=== PATIENT | female | born 1970 | race Caucasian/White ===

== ENCOUNTER → 2016-11-11 | Outpatient (CLI) | payer MEDICAID ==
--- OUTSIDE RECORDS SUMMARY | 2016-11-11 09:16 | XMS REPORT ---
Author MORIS Elias [facility] eClinicalWorks Address Unknown Phone Unavailable Care Team Providers Care [employer] Name Role Phone MORIS YEE CP Unavailable Allergies, Adverse Reactions, Alerts Substance Reaction Event Type Wellbutrin black outs Drug Allergy Remeron nightmares Drug Allergy NSaids Causes stomach bleeding Non Drug Allergy Problems Problem Type Condition Code Onset Dates Condition Status Assessment Pre-op evaluation Z01.818 Active Problem Back pain, unspecified back location, unspecified back pain laterality , unspecified chronicity M54.9 Active Problem History of herpes genitalis Z86.19 Active Assessment Hypokalemia E87.6 Active Problem Fibromyalgia M79.7 Active Problem Depression, unspecified depression type F32.9 Active Problem Encounter to establish care Z76.89 Active Problem 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 Problem Chronic obstructive pulmonary disease, unspecified COPD type J44.9 Active Problem SVT (supraventricular tachycardia) I47.1 Active Problem Migraine without status migrainosus, not intractable, unspecified migraine type G43.909 Active Medications Medication Code System Code Instructions Start Date End Date Status Dosage Lyrica [facility] [address]-48 100 MG Orally 2 times a day 1 capsule Tramadol HCl [facility] [address]-47 50 mg Orally 2 times a day 1 tablet as needed Imitrex [facility] [address]-41 100 MG Orally 1 tablet at the onset of of Migraine, and a 2nd pill 1-2 hours after if needed Tizanidine HCl [facility] [address]-08 4 MG Orally every 8 hrs April 14, 2016 1 tablet as needed Spiriva HandiHaler [facility] [address]-27 18 MCG Inhalation Once a day 1 Capsule ProAir HFA [facility] [address]-07 108 (90 Base) MCG/ACT Inhalation every 4 hrs 2 puffs as needed Topamax [facility] [address]-98 50 mg Orally Twice a day 1 tablet Diflucan [facility] [address]-89 100 MG Orally then 1 tablet once daily Apr 30, 2016 May 14, 2016 2 tablets on day one, Potassium [facility] [address]-51 10 Orally Once a day May 04, 2016 1 tablet Atenolol [facility] [address]-72 25 MG Orally Once a day 1 tablet Procedures Procedure Coding System Code Date Office Visit, Est Pt., Level 3 CPT-4 40106 May 04, 2016 Vital Signs Date/Time: May 04, 2016 Cardiac Monitoring Heart Rate 84 bpm Weight 129.8 lbs Height 66 in BMI 20.95 Index Blood Pressure Diastolic 68 mmHg Blood Pressure Systolic 114 mmHg Results No Known Results Summary Purpose eClinicalWorks Submission
--- NOTE | 2016-11-11 10:51 | Diagnostic Imaging Report ---
PROCEDURE: MRI lumbar spine. TECHNIQUE: Multiplanar, multisequence MRI of the lumbar spine was performed without contrast. INDICATION: Low back pain, right leg pain. COMPARISON: There are no previous studies available for comparison. FINDINGS: The parasagittal images show the vertebral body heights and alignment to be within normal limits. There is narrowing and desiccation of the disc at the L1-2 disc space and there is a slight disc bulge centrally at this level. The thecal sac is generous however and there is no evidence for spinal stenosis or nerve root encroachment at L1-2. The remainder of the lumbar spine is also unremarkable for spinal stenosis or nerve root encroachment. There is a disc bulge eccentric to the right at T11-12. The disc compresses the right ventral aspect of the thecal sac but does not appear to produce any significant central stenosis or nerve root encroachment. There is an even smaller disc bulge eccentric to the left at T12-L1. There is no abnormal signal arising from the cord or the vertebral bodies to indicate an acute abnormality. There is no sign of a paraspinal mass. IMPRESSION: 1. There is degenerative disc disease in the lower thoracic spine and at L1-2. There is a disc bulge to the right at T11-12 and to the left at T12-L1 but there is no sign of spinal stenosis or nerve root encroachment at either of these two levels. The L1-2 level is also unremarkable for any significant narrowing of the thecal sac or neural foramen. 2. The remainder of the lumbar spine is unremarkable for spinal stenosis or nerve root encroachment as well. 3. There is no sign of an acute bony abnormality or for cord lesion. Dictated by: Dictated on workstation # [id number]
== END ==
LOC: RAD 09:12
PROVIDERS: ATTEND Nurse Practitioner Community Health
DX: M54.41 Lumbago with sciatica, right side (principal)
CPT/HCPCS: 72148